=== PATIENT | female | born 2000 | race Caucasian/White ===

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

== ENCOUNTER 2020-11-26 11:05 | Emergency (ER) | payer OTHER ==
--- OUTSIDE RECORDS SUMMARY | 2020-11-26 11:52 | EXTERNAL MEDICAL SUMMARY RPT | Continuity of Care Document ---
:2000 Demographics Phone Unavailable Preferred Language Unknown Marital Status Unknown Mandaeism Affiliation Unknown Race Unknown Ethnic Group Unknown Author Organization [facility] Address [address] [id number] Phone Allergies Encounters Medications Problems Results
[2020-11-26 11:58] LABS: BILIRUBIN,URINE NEGATIVE (NEGATIVE); GLUCOSE, URINE (UA) NEGATIVE (NEGATIVE); KETONES,URINE (UA) 15 mg/dL (NEGATIVE); LEUKOCYTE ESTERASE, URINE NEGATIVE (NEGATIVE); NITRITE,URINE NEGATIVE (NEGATIVE); OCCULT BLOOD,URINE NEGATIVE (NEGATIVE); PH,URINE 6.5 PH (5.0-7.5); PROTEIN,URINE NEGATIVE (NEGATIVE); UROBILINOGEN,URINE 0.2 (NORMAL) E.U./dL (NORMAL)
[2020-11-26 11:58] LABS: BASOPHILS # (AUTO) 0.1 10^3/uL (0.0-0.1); BASOPHILS % (AUTO) 1.1 %; EOSINOPHILS # (AUTO) 0.1 10^3/uL (0.0-0.7); EOSINOPHILS % (AUTO) 1.6 %; HCT - HEMATOCRIT 42.3 % (37.0-47.0); HGB - HEMOGLOBIN 14.7 g/dL (12.0-16.0); LYMPHOCYTES # (AUTO) 2.3 10^3/uL (1.5-3.5); LYMPHOCYTES % (AUTO) 27.3 %; MEAN CORPUSCULAR HEMOGLOBIN 30.2 pg (27.0-31.0); MEAN CORPUSCULAR HGB CONC 34.8 g/dL (32.0-36.0); MEAN CORPUSCULAR VOLUME 86.9 fL (81.0-99.0); MEAN PLATELET VOLUME 10.3 fL (7.9-10.8); MONOCYTES # (AUTO) 0.8 10^3/uL (0.0-1.0); MONOCYTES % (AUTO) 9.1 %; NEUTROPHILS % (AUTO) 60.5 %; PLT - PLATELET COUNT 356 10^3/uL (130-450); RED BLOOD COUNT 4.87 10^6/uL (4.20-5.40); RED CELL DISTRIBUTION WIDTH 11.5 % (12.0-15.0); WHITE BLOOD COUNT 8.3 x10^3/uL (4.8-10.8)
[2020-11-26 12:01] LABS: CLARITY,URINE CLEAR (CLEAR); HCG UR QUAL NEGATIVE
[2020-11-26 12:10] LABS: ALBUMIN 5.2 g/dL (3.2-5.5); ALBUMIN/GLOBULIN RATIO 1.3 (1.0-2.2); CREATININE 0.8 mg/dL (0.4-1.0); POTASSIUM 4.4 mmol/L (3.5-5.0); TOTAL PROTEIN 9.1 g/dL (6.7-8.2)
--- NOTE | 2020-11-26 13:26 | ED Physician Documentation ---
PD HPI ABD PAIN - Stated complaint Stated Complaint: BLOOD IN STOOL - Chief complaint Chief Complaint: Abd Pain - History obtained from History obtained from: Patient - History of Present Illness Timing - onset: How many weeks ago (several weeks) Timing - duration: Weeks Timing - details: Abrupt onset Pain level max: 6 Pain level now: 5 Quality: Cramping, Aching, Pain Location: RLQ, Suprapubic, LLQ Radiation: No: Chest, , Lower back, Left flank, Left shoulder, Right flank, Right shoulder, Upper back Improved by: Other (nothing) Worsened by: Other (nothing) Associated symptoms: Diarrhea, Hematochezia. No: Fever, Nausea, Vomiting, Hematemesis - Additional information Additional information: Patient is a 20-year-old female who presents to the emergency department with lower abdominal pain and cramping, intermittently over the past year, but worse over the past 2 weeks. She reports bright red blood per rectum and bright red blood in the stool over the past 2 weeks as well. She states that she has ulcers that occasionally arise in her mouth. She has a brother with Crohn's disease. She is not currently on any medications. Has never had a colonoscopy or endoscopy. Nothing seems to make it better or worse. No fevers. No chills. Review of Systems Ten Systems: 10 systems reviewed and negative Constitutional: denies: Fever, Chills Nose: denies: Rhinorrhea / runny nose, Congestion Respiratory: denies: Cough GI: denies: Vomiting, Diarrhea Skin: denies: Rash Musculoskeletal: denies: Neck pain, Back pain Neurologic: denies: Headache PD PAST MEDICAL HISTORY - Past Medical History Past Medical History: Yes - Past Surgical History Past Surgical History: No - Present Medications Home Medications: Ambulatory Orders Medication Instructions Recorded Confirmed predniSONE [Deltasone] 10 mg PO [id number] #42 tab 11/26/20 - Allergies Allergies/Adverse Reactions: Allergies Allergy/AdvReac Type Severity Reaction Status Date / Time No Known Drug Allergies Allergy Verified 11/26/20 11:32 PD ED PE NORMAL - Vitals Vital signs reviewed: Yes - General General: Alert and oriented X 3, No acute distress - HEENT HEENT: Moist mucous membranes - Neck Neck: Supple, no meningeal sign - Cardiac Cardiac: RRR - Respiratory Respiratory: No respiratory distress, Clear bilaterally - Abdomen Abdomen: Soft, Non distended, Other (mild TTP lower abd, no peritoneal signs.) - Derm Derm: Warm and dry - Neuro Neuro: Alert and oriented X 3 - Psych Psych: Normal mood, Normal affect Results - Vitals Vitals: Vital Signs - 24 hr 11/26/20 11/26/20 11:32 14:26 Temperature 36.5 C 37.3 C Heart Rate 100 93 Respiratory 16 16 Rate Blood Pressure 139/96 H 128/83 H O2 Saturation 100 97 Oxygen O2 Source Room air - Labs Labs: Laboratory Tests 11/26/20 11/26/20 11/26/20 11:50 11:53 11:53 WBC 8.3 RBC 4.87 Hgb 14.7 Hct 42.3 MCV 86.9 MCH 30.2 MCHC 34.8 RDW 11.5 L Plt Count 356 MPV 10.3 Neut # (Auto) 5.0 Lymph # (Auto) 2.3 Bland # (Auto) 0.8 Eos # (Auto) 0.1 Baso # (Auto) 0.1 Absolute Nucleated RBC 0.00 Nucleated RBC % 0.0 ESR Sodium 137 Potassium 4.4 Chloride 102 Carbon Dioxide 26 Anion Gap 9.0 BUN 13 Creatinine 0.8 Estimated GFR (MDRD) 91 Glucose 106 H Calcium 10.0 Total Bilirubin 1.0 AST 23 ALT 19 Alkaline Phosphatase 69 Total Protein 9.1 H Albumin 5.2 Globulin 3.9 Albumin/Globulin Ratio 1.3 Lipase 23 Urine Color DARK YELLOW Urine Clarity CLEAR Urine pH 6.5 Ur Specific Gordon 1.020 Urine Protein NEGATIVE Urine Glucose (UA) NEGATIVE Urine Ketones 15 H Urine Occult Blood NEGATIVE Urine Nitrite NEGATIVE Urine Bilirubin NEGATIVE Urine Urobilinogen 0.2 (NORMAL) Ur Leukocyte Esterase NEGATIVE Ur Microscopic Review NOT INDICATED Urine Culture Comments NOT INDICATED Urine HCG, Qual NEGATIVE 11/26/20 11:53 WBC RBC Hgb Hct MCV MCH MCHC RDW Plt Count MPV Neut # (Auto) Lymph # (Auto) Bland # (Auto) Eos # (Auto) Baso # (Auto) Absolute Nucleated RBC Nucleated RBC % ESR 14 Sodium Potassium Chloride Carbon Dioxide Anion Gap BUN Creatinine Estimated GFR (MDRD) Glucose Calcium Total Bilirubin AST ALT Alkaline Phosphatase Total Protein Albumin Globulin Albumin/Globulin Ratio Lipase Urine Color Urine Clarity Urine pH Ur Specific Gordon Urine Protein Urine Glucose (UA) Urine Ketones Urine Occult Blood Urine Nitrite Urine Bilirubin Urine Urobilinogen Ur Leukocyte Esterase Ur Microscopic Review Urine Culture Comments Urine HCG, Qual - Rads (name of study) CT abd/pelvis Radiology: Prelim report reviewed, EMP read contemporaneously, See rad report (no acute abnormality) PD MEDICAL DECISION MAKING - ED course Complexity details: reviewed results, re-evaluated patient, considered differential, d/w patient ED course: 20-year-old female presents to the emergency department with symptoms that been ongoing for some time. It seems that her symptoms to be most consistent with an inflammatory bowel disease, likely Crohn's disease. We will trial her on a hanh roid taper and see if this helps her symptoms. She will follow up with gastroenterology as well for colonoscopy and endoscopy. Her brother has Crohn's disease as well. No significant anemia. No acute findings on CT. This document was made in part using voice recognition software. While efforts are made to proofread this document, sound alike and grammatical errors may occur. Departure - Departure Disposition: 01 Home, Self Care Clinical Impression: Hematochezia Abdominal pain Qualifiers: Abdominal location: unspecified location Qualified Code(s): R10.9 - Unspecified abdominal pain Condition: Good Instructions: ED Abdominal Pain Unkn Cause, ED Inflam Bowel Disease Crohn Follow-Up: [facility] [Provider Group] - Within 1 week Prescriptions: predniSONE [Deltasone] 10 mg PO [id number] #42 tab Comments: Follow-up with gastroenterology for further care. You should obtain a primary care provider as well. You will likely need a colonoscopy and/or endoscopy for further diagnosis and management. The steroid should help with your symptoms. Return if you worsen Discharge Date/Time: 11/26/20 15:17
[2020-11-26] MEDS ORDERED: IOVERSOL 320 100 ML VIAL IVP ONE ×2 (14:06→16:55)
--- NOTE | 2020-11-26 14:44 | CT Report ---
PROCEDURE: Abdomen/Pelvis W INDICATIONS: diffuse abd pain, hematochezia CONTRAST: IV CONTRAST: Optiray 320 ml: 100 PO CONTRAST: *NO PO CONTRAST TECHNIQUE: After the administration of 100 contrast, 5 mm thick sections acquired from the diaphragms to the sym physis. 5 mm thick coronal and sagittal reformats were acquired. For radiation dose reduction, the following was used: automated exposure control, adjustment of mA and/or kV according to patient size . COMPARISON: None. FINDINGS: Image quality: Excellent. ABDOMEN: Lung bases: Lung bases are clear. Heart size is normal. Solid organs: Liver and spleen are normal in size and enhancement. Gallbladder is normal Biliary s ystem is non dilated. Pancreas enhances normally. No adrenal nodules. Kidneys demonstrate normal s ize and enhancement, without hydronephrosis. Peritoneum and bowel: Bowel loops demonstrate normal wall thickness and caliber. No free fluid or a ir. Nodes and vessels: No retroperitoneal or mesenteric adenopathy by size criteria. Aorta and inferior vena cava are normal in size. Miscellaneous: No ventral hernias. PELVIS: Genitourinary: Bladder wall thickness is normal. Miscellaneous: No inguinal hernias or adenopathy. Bones: No suspicious bony lesions. No vertebral body compression fractures. IMPRESSION: 1. No acute abdominal or pelvic abnormality. 2. Normal appendix. 3. No CT findings to suggest Crohn's disease, however CT is not sensitive for this diagnosis. Reviewed by: Babar Scott on 11/26/2020 2:43 PM PDT Approved by: Babar Scott on 11/26/2020 2:43 PM PDT Station ID: [id number]
[2020-11-26 14:47] VITALS: BP 128/83
[2020-11-26] MEDS ORDERED: predniSONE 20 MG TABLET PO STA (14:57)
== END 2020-11-26 15:17 | disposition home or self-care (01) ==
LOC: ED 11:05
DX: K92.1 Melena (principal); R10.31 Right lower quadrant pain; R10.32 Left lower quadrant pain; Z83.79 Family history of other diseases of the digestive system
CPT/HCPCS: 36415; 74177; 80053; 81003; 81025; 83690; 85025; 85651; 99284; J7512; Q9967; 81001; 87086

== ENCOUNTER 2021-03-24 06:55 | Emergency (ER) | payer OTHER ==
[2021-03-24 07:17] LABS: GLUCOSE, URINE (UA) NEGATIVE (NEGATIVE); KETONES,URINE (UA) >=80 mg/dL (NEGATIVE); LEUKOCYTE ESTERASE, URINE NEGATIVE (NEGATIVE); NITRITE,URINE NEGATIVE (NEGATIVE); OCCULT BLOOD,URINE NEGATIVE (NEGATIVE); PROTEIN,URINE NEGATIVE (NEGATIVE); UROBILINOGEN,URINE 0.2 (NORMAL) E.U./dL (NORMAL)
[2021-03-24 07:20] LABS: BILIRUBIN,URINE NEGATIVE (NEGATIVE); CLARITY,URINE CLEAR (CLEAR); HCG UR QUAL NEGATIVE; ICTOTEST,URINE NEGATIVE
--- NOTE | 2021-03-24 07:36 | ED Physician Documentation ---
PD HPI ABD PAIN - Stated complaint Stated Complaint: STOMACH PX - Chief complaint Chief Complaint: Abd Pain - History obtained from History obtained from: Patient - Additional information Additional information: 21yo female with recent dx Crohn's disease. Intermittent sharp abd pain yuli 18 hours. 16 lb weight loss over the last few weeks. Diarrhea for months with mucous and blood. About 40 pound total weight loss since November. Was on Prednisone in November, not on anything for Crohn's disease now. PD PAST MEDICAL HISTORY - Past Medical History GI: Crohn's disease - Past Surgical History Past Surgical History: No - Present Medications Home Medications: Ambulatory Orders Medication Instructions Recorded Confirmed Dicyclomine [Bentyl] 1 - 2 tab PO QID PRN #60 cap 03/24/21 Mesalamine [Pentasa] 2 tab PO TID #360 tab 03/24/21 Ondansetron Odt [Zofran] 4 mg TL Q6H PRN #30 tablet 03/24/21 lamoTRIgine [LaMICtal] 25 mg PO DAILY 03/24/21 03/24/21 lamoTRIgine [LaMICtal] 100 mg PO DAILY 03/24/21 03/24/21 predniSONE [Deltasone] 4 tablet PO 0800 #70 tablet 03/24/21 - Allergies Allergies/Adverse Reactions: Allergies Allergy/AdvReac Type Severity Reaction Status Date / Time No Known Drug Allergies Allergy Verified 03/24/21 07:02 - Social History Does the pt smoke?: No Smoking Status: Never smoker PD ED PE NORMAL - Vitals Vital signs reviewed: Yes - General General: Alert and oriented X 3, No acute distress - Abdomen Abdomen: Normal bowel sounds, Soft, Non tender - Neuro Neuro: Alert and oriented X 3, Normal speech - Psych Psych: Normal mood, Normal affect Results - Vitals Vitals: Vital Signs - 24 hr 03/24/21 03/24/21 03/24/21 07:05 07:12 07:42 Temperature 37.2 C Heart Rate 130 H 118 H 90 Respiratory 18 22 17 Rate Blood Pressure 160/93 H 148/93 H 125/80 O2 Saturation 100 99 99 03/24/21 03/24/21 03/24/21 08:00 08:30 10:00 Temperature Heart Rate 94 100 88 Respiratory 16 16 14 Rate Blood Pressure 131/75 H 105/90 H 117/67 O2 Saturation 98 99 96 Oxygen O2 Source Room air - Labs Labs: Laboratory Tests 03/24/21 03/24/21 03/24/21 07:09 07:39 07:39 WBC 5.6 RBC 4.77 Hgb 14.2 Hct 42.0 MCV 88.1 MCH 29.8 MCHC 33.8 RDW 11.5 L Plt Count 285 MPV 10.6 Neut # (Auto) 3.4 Lymph # (Auto) 1.5 Baker # (Auto) 0.6 Eos # (Auto) 0.2 Baso # (Auto) 0.1 Absolute Nucleated RBC 0.00 Nucleated RBC % 0.0 Sodium 138 Potassium 4.0 Chloride 102 Carbon Dioxide 24 Anion Gap 12.0 BUN 12 Creatinine 0.9 Estimated GFR (MDRD) 79 L Glucose 90 Calcium 9.7 Total Bilirubin 1.8 H AST 20 ALT 15 Alkaline Phosphatase 55 Total Protein 7.9 Albumin 5.4 Globulin 2.5 Albumin/Globulin Ratio 2.2 Lipase 25 Urine Color DARK YELLOW Urine Clarity CLEAR Urine pH 6.0 Ur Specific Colony >=1.030 H Urine Protein NEGATIVE Urine Glucose (UA) NEGATIVE Urine Ketones >=80 H Urine Occult Blood NEGATIVE Urine Nitrite NEGATIVE Urine Bilirubin NEGATIVE Urine Urobilinogen 0.2 (NORMAL) Ur Leukocyte Esterase NEGATIVE Ur Microscopic Review NOT INDICATED Urine Culture Comments NOT INDICATED Urine HCG, Qual NEGATIVE PD MEDICAL DECISION MAKING - ED course ED course: 21-year-old woman with symptoms from Crohn's including orthostasis, abdominal cramps, nausea and vomiting and bloody mucousy stools. She is on no therapy right now. She is tachycardic with ketonuria consistent with dehydration. She was administered 2 L of LR, IV Zofran, and IV Solu-Medrol here. Feeling better after the above interventions and started on a steroid taper and other meds for symptomatic relief pending GI follow-up which is scheduled for early next month. Departure - Departure Disposition: 01 Home, Self Care Clinical Impression: Acute Crohn's disease Qualifiers: Digestive disease complication type: without complication Qualified Code(s): K50.90 - Crohn's disease, unspecified, without complications Condition: Good Record reviewed to determine appropriate education?: Yes Instructions: Disease Crohn Dc Prescriptions: Dicyclomine [Bentyl] 1 - 2 tab PO QID PRN #60 cap PRN Reason: Abdominal Pain predniSONE [Deltasone] 4 tablet PO 0800 #70 tablet Mesalamine [Pentasa] 2 tab PO TID #360 tab Ondansetron Odt [Zofran] 4 mg TL Q6H PRN #30 tablet PRN Reason: Nausea / Vomiting Comments: Prescriptions sent electronically to [facility] in [place]. Take the prescriptions with you when you follow-up with GI and you can discuss what is working and what is not. Return if worsening or if your symptoms are uncontrolled. Discharge Date/Time: 03/24/21 10:37
[2021-03-24] MEDS ORDERED: LACTATED RINGERS 2,000 ML IV STA (07:38)
[2021-03-24] MEDS ORDERED: ONDANSETRON 4 MG/2 ML VIAL IVP STA (07:39)
[2021-03-24] MEDS ORDERED: methylPREDNISolone SUCCINATE 125 MG/2 ML VIAL IVP STA (07:43)
[2021-03-24 07:50] LABS: BASOPHILS # (AUTO) 0.1 10^3/uL (0.0-0.1); BASOPHILS % (AUTO) 0.9 %; EOSINOPHILS # (AUTO) 0.2 10^3/uL (0.0-0.7); EOSINOPHILS % (AUTO) 2.9 %; HGB - HEMOGLOBIN 14.2 g/dL (12.0-16.0); LYMPHOCYTES # (AUTO) 1.5 10^3/uL (1.5-3.5); LYMPHOCYTES % (AUTO) 26.1 %; MEAN CORPUSCULAR HEMOGLOBIN 29.8 pg (27.0-31.0); MEAN CORPUSCULAR HGB CONC 33.8 g/dL (32.0-36.0); MEAN CORPUSCULAR VOLUME 88.1 fL (81.0-99.0); MEAN PLATELET VOLUME 10.6 fL (7.9-10.8); MONOCYTES # (AUTO) 0.6 10^3/uL (0.0-1.0); MONOCYTES % (AUTO) 10.2 %; NEUTROPHILS # (AUTO) 3.4 10^3/uL (1.5-6.6); NEUTROPHILS % (AUTO) 59.7 %; PLT - PLATELET COUNT 285 10^3/uL (130-450); RED BLOOD COUNT 4.77 10^6/uL (4.20-5.40); RED CELL DISTRIBUTION WIDTH 11.5 % (12.0-15.0); WHITE BLOOD COUNT 5.6 x10^3/uL (4.8-10.8)
[2021-03-24 07:59] LABS: ALBUMIN 5.4 g/dL (3.2-5.5); ALBUMIN/GLOBULIN RATIO 2.2 (1.0-2.2); BILIRUBIN,TOTAL 1.8 mg/dL (0.2-1.0); CALCIUM 9.7 mg/dL (8.5-10.3); CREATININE 0.9 mg/dL (0.4-1.0); TOTAL PROTEIN 7.9 g/dL (6.7-8.2)
[2021-03-24] MEDS ORDERED: DICYCLOMINE 10 MG CAPSULE PO STA (09:38)
[2021-03-24 10:19] VITALS: BP 117/67
== END 2021-03-24 10:37 | disposition home or self-care (01) ==
LOC: ED 06:55
DX: K50.90 Crohn's disease, unspecified, without complications (principal); E86.0 Dehydration
CPT/HCPCS: 36415; 80053; 81003; 81025; 83690; 85025; 96361; 96374; 96375; 99281; 99283; A9270; J7120; 81001; 87086

== ENCOUNTER 2021-06-02 00:35 | Emergency (ER) | payer OTHER ==
[2021-06-02 01:07] LABS: GLUCOSE, URINE (UA) NEGATIVE (NEGATIVE); KETONES,URINE (UA) >=80 mg/dL (NEGATIVE); LEUKOCYTE ESTERASE, URINE NEGATIVE (NEGATIVE); NITRITE,URINE NEGATIVE (NEGATIVE); OCCULT BLOOD,URINE LARGE (NEGATIVE); PH,URINE 5.5 PH (5.0-7.5); PROTEIN,URINE TRACE mg/dL (NEGATIVE); UROBILINOGEN,URINE 0.2 (NORMAL) E.U./dL (NORMAL)
[2021-06-02 01:13] LABS: BILIRUBIN,URINE NEGATIVE (NEGATIVE); CLARITY,URINE HAZY (CLEAR); ICTOTEST,URINE NEGATIVE
[2021-06-02 01:14] LABS: BACTERIA,URINE Few /HPF (None Seen); HCG UR QUAL NEGATIVE; RBC,URINE TNTC /HPF (0-5); SQUAMOUS EPITHELIAL CELL,UR MOD Squamous (<= Few)
--- NOTE | 2021-06-02 01:36 | ED Physician Documentation ---
PD HPI FEMALE - Stated complaint Stated Complaint: FEMALE - Chief complaint Chief Complaint: Abd Pain - History obtained from History obtained from: Patient - History of Present Illness Timing - onset: How many days ago (2-3) Timing - duration: Days Timing - details: Abrupt onset Pain level max: 3 (suprapubic cramping pain) Associated symptoms: Abdominal pain, Vaginal bleeding. No: Fever, Dysuria Contributing factors: No: Similar symptoms before: No diagnosis - Additional information Additional information: patients chief complaint is vaginal bleeding with clots x 2-3 days, associated with suprapubic cramping pain. She has many other c/o which are of a more [id number] nature; these include unintended weight loss, nausea and vomiting, various rashes that appear and fade, abdominal pain that is most pronounced LUQ for which she recently had upper endoscopy (last week) which patient says showed mild gastritis, episodic diaphoresis, rapid palpitations. Review of Systems Constitutional: reports: Fatigue, Sweats. denies: Fever Eyes: reports: Reviewed and negative Cardiac: reports: Palpitations. denies: Chest pain / pressure, Pedal edema Respiratory: reports: Reviewed and negative GI: reports: Abdominal Pain, Nausea, Vomiting. denies: Hematemesis, Bloody / black stool : denies: Dysuria, Frequency, Now EGA Skin: reports: Rash Neurologic: reports: Headache. 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: No Does the pt have substance abuse?: No - Immunizations Immunizations are current?: Yes - POLST Patient has POLST: No PD ED PE NORMAL - Vitals Vital signs reviewed: Yes - General General: Alert and oriented X 3, Well developed/nourished, Other (anxious, and tearful at times (she explains that her ongoing symptoms are wearing on her and she fears that there will never be a diagnosis for her symptoms)) - Cardiac Cardiac: No murmur - Respiratory Respiratory: No respiratory distress, Clear bilaterally - Abdomen Abdomen: Soft, Non distended, Other (mild suprapubic and left anterior hemipelvic tenderness without rebound or guarding) - Back Back: No CVA TTP - Derm Derm: Normal color, Warm and dry PD ED PE EXPANDED - Cardiac Cardiac: Tachy, Regular Rhythm Results - Vitals Vitals: Oxygen O2 Source Room air - Labs Labs: Laboratory Tests 06/02/21 06/02/21 06/02/21 00:50 00:50 02:07 WBC 10.7 RBC 4.65 Hgb 14.0 Hct 40.3 MCV 86.7 MCH 30.1 MCHC 34.7 RDW 11.6 L Plt Count 322 MPV 10.7 Neut # (Auto) 7.4 H Lymph # (Auto) 2.1 Aurora # (Auto) 1.0 Eos # (Auto) 0.1 Baso # (Auto) 0.1 Absolute Nucleated RBC 0.00 Nucleated RBC % 0.0 Sodium Potassium Chloride Carbon Dioxide Anion Gap BUN Creatinine Estimated GFR (MDRD) Glucose Calcium Total Bilirubin AST ALT Alkaline Phosphatase Total Protein Albumin Globulin Albumin/Globulin Ratio Lipase Urine Color YELLOW Urine Clarity HAZY Urine pH 5.5 Ur Specific Starr >=1.030 H Urine Protein TRACE Urine Glucose (UA) NEGATIVE Urine Ketones >=80 H Urine Occult Blood LARGE H Urine Nitrite NEGATIVE Urine Bilirubin NEGATIVE Urine Urobilinogen 0.2 (NORMAL) Ur Leukocyte Esterase NEGATIVE Urine RBC TNTC H Urine WBC 4-5 Ur Squamous Epith Cells MOD Squamous H Urine Bacteria Few Ur Microscopic Review INDICATED Urine Culture Comments NOT INDICATED Urine HCG, Qual NEGATIVE 06/02/21 02:07 WBC RBC Hgb Hct MCV MCH MCHC RDW Plt Count MPV Neut # (Auto) Lymph # (Auto) Aurora # (Auto) Eos # (Auto) Baso # (Auto) Absolute Nucleated RBC Nucleated RBC % Sodium 137 Potassium 3.8 Chloride 100 L Carbon Dioxide 22 Anion Gap 15.0 H BUN 14 Creatinine 0.9 Estimated GFR (MDRD) 79 L Glucose 80 Calcium 9.8 Total Bilirubin 1.7 H AST 16 ALT 13 Alkaline Phosphatase 61 Total Protein 8.1 Albumin 4.9 Globulin 3.2 Albumin/Globulin Ratio 1.5 Lipase 22 Urine Color Urine Clarity Urine pH Ur Specific Starr Urine Protein Urine Glucose (UA) Urine Ketones Urine Occult Blood Urine Nitrite Urine Bilirubin Urine Urobilinogen Ur Leukocyte Esterase Urine RBC Urine WBC Ur Squamous Epith Cells Urine Bacteria Ur Microscopic Review Urine Culture Comments Urine HCG, Qual - Rads (name of study) pelvic US Radiology: Prelim report reviewed, See rad report PD MEDICAL DECISION MAKING - ED course Complexity details: reviewed results, re-evaluated patient, considered diffe rential, d/w patient ED course: pelvic/TV US demonstrates possible endometrial implant in left adnexa. Patient was already aware that endometriosis could be one of her (eventually) diagnoses and this finding , while not confirmatory, is compelling. There are no emergent processes indicated nor suggested by tonights testing and thus patient is instructed to follow up with primary care provider, return if worse. Departure - Departure Disposition: 01 Home, Self Care Clinical Impression: Vaginal bleeding Condition: Good Instructions: ED Bleed Irregular Vaginal Follow-Up: Agustina Dent ARNP [Primary Care Provider] - Comments: As we discussed, the cause of your vaginal bleeding is not apparent based on today's tests. However, there is a finding on the ultrasound which could be consistent with endometriosis. This diagnosis would require further evaluation by an manufacturing controls engineer. Discharge Date/Time: 06/02/21 06:40
[2021-06-02 02:23] LABS: BASOPHILS # (AUTO) 0.1 10^3/uL (0.0-0.1); BASOPHILS % (AUTO) 0.8 %; EOSINOPHILS # (AUTO) 0.1 10^3/uL (0.0-0.7); EOSINOPHILS % (AUTO) 1.1 %; HCT - HEMATOCRIT 40.3 % (37.0-47.0); LYMPHOCYTES # (AUTO) 2.1 10^3/uL (1.5-3.5); LYMPHOCYTES % (AUTO) 19.5 %; MEAN CORPUSCULAR HEMOGLOBIN 30.1 pg (27.0-31.0); MEAN CORPUSCULAR HGB CONC 34.7 g/dL (32.0-36.0); MEAN CORPUSCULAR VOLUME 86.7 fL (81.0-99.0); MEAN PLATELET VOLUME 10.7 fL (7.9-10.8); MONOCYTES % (AUTO) 9.1 %; NEUTROPHILS # (AUTO) 7.4 10^3/uL (1.5-6.6); NEUTROPHILS % (AUTO) 69.2 %; PLT - PLATELET COUNT 322 10^3/uL (130-450); RED BLOOD COUNT 4.65 10^6/uL (4.20-5.40); RED CELL DISTRIBUTION WIDTH 11.6 % (12.0-15.0); WHITE BLOOD COUNT 10.7 x10^3/uL (4.8-10.8)
[2021-06-02 02:35] LABS: ALBUMIN 4.9 g/dL (3.2-5.5); ALBUMIN/GLOBULIN RATIO 1.5 (1.0-2.2); BILIRUBIN,TOTAL 1.7 mg/dL (0.2-1.0); CALCIUM 9.8 mg/dL (8.5-10.3); CREATININE 0.9 mg/dL (0.4-1.0); POTASSIUM 3.8 mmol/L (3.5-5.0); TOTAL PROTEIN 8.1 g/dL (6.7-8.2)
[2021-06-02] MEDS ORDERED: SODIUM CHLORIDE 0.9% 1,000 ML IV STA (05:24)
[2021-06-02 05:49] VITALS: BP 132/82
--- NOTE | 2021-06-02 08:27 | Ultrasound Report ---
PROCEDURE: Pelvic Complete INDICATIONS: Vaginal bleeding, cramping TECHNIQUE: Real-time transabdominal scanning was performed of the pelvic organs, with image documentation. COMPARISON: CT abdomen and pelvis dated 11/26/2020 FINDINGS: Uterus: Uterus is normal in size at 9.4 x 6.2 x 4.0 cm. Endometrium measures 7.4 mm in combined thi ckness. Uterus is anteverted. Uterine volume is 121.9 mL. Ovaries: Right ovary measures 3.5 x 2.3 x 2.1 cm with a volume of 8.8 mL. Left ovary measures 2.9 x 2.4 x 2.2 cm with a volume of 8.0 mL. There is bilateral intraovarian flow. There is a hypoechoic focus medial to the left ovary measuring 3.1 x 1.0 x 1.1 cm with flow within it . Other: No free pelvic fluid. IMPRESSION: 1. Normal-appearing uterus. 2. No evidence of ovarian torsion. Normal ovaries. 3. Hypoechoic focus with internal vascularity adjacent to the left adnexa. Consider possible endometr ial implant. Findings are concordant with preliminary interpretation provided by [facility]. Reviewed by: Carl Somers MD on 06/02/2021 8:26 AM PST Approved by: Carl Somers MD on 06/02/2021 8:26 AM PST Station ID: [id number]
--- NOTE | 2021-06-02 08:28 | Ultrasound Report ---
PROCEDURE: Pelvic Complete INDICATIONS: Vaginal bleeding, cramping TECHNIQUE: Real-time transvaginal scanning was performed of the pelvic organs, with image documentation. COMPARISON: CT abdomen and pelvis dated 11/26/2020 FINDINGS: Uterus: Uterus is normal in size at 9.4 x 6.2 x 4.0 cm. Endometrium measures 7.4 mm in combined thi ckness. Uterus is anteverted. Uterine volume is 121.9 mL. Ovaries: Right ovary measures 3.5 x 2.3 x 2.1 cm with a volume of 8.8 mL. Left ovary measures 2.9 x 2.4 x 2.2 cm with a volume of 8.0 mL. There is bilateral intraovarian flow. There is a hypoechoic focus medial to the left ovary measuring 3.1 x 1.0 x 1.1 cm with flow within it . Other: No free pelvic fluid. IMPRESSION: 1. Normal-appearing uterus. 2. No evidence of ovarian torsion. Normal ovaries. 3. Hypoechoic focus with internal vascularity adjacent to the left adnexa. Consider possible endometr ial implant. Findings are concordant with preliminary interpretation provided by [facility]. Reviewed by: Carl Somers MD on 06/02/2021 8:27 AM PST Approved by: Carl Somers MD on 06/02/2021 8:27 AM PST Station ID: [id number]
== END 2021-06-02 06:40 | disposition home or self-care (01) ==
LOC: ED 00:35
DX: N93.9 Abnormal uterine and vaginal bleeding, unspecified (principal)
CPT/HCPCS: 36415; 80053; 81001; 81003; 81025; 83690; 85025; 87086; 99284

== ENCOUNTER 2021-08-11 18:32 | Emergency (ER) | payer OTHER ==
[2021-08-11 19:17] LABS: MUDS CUTOFF CONCENTRATIONS CUTOFF CONC BELOW:
[2021-08-11] MEDS ORDERED: LORazepam 2 MG/ML VIAL IVP STA (19:17)
[2021-08-11] MEDS ORDERED: SODIUM CHLORIDE 0.9% 1,000 ML IV STA (19:17)
--- NOTE | 2021-08-11 19:18 | ED Physician Documentation ---
History of Present Illness - Stated complaint Stated Complaint: BODY NUMBNESS,UNABLE TO THINK - Chief complaint Chief Complaint: Neuro - History obtained from History obtained from: Patient - History of Present Illness Timing: Today Pain level max: 0 Pain level now: 0 - Additonal information Additional information: 21-year-old female presents to the emergency department stating she had numbness near her left ankle earlier today. The numbness was then in her left thigh. Later she noticed that she had numbness in her left shoulder and upper arm. Currently she is complaining of numbness and tingling to the left arm. She states she went into the walk-in clinic and was told to come here if she worsens. Nothing seems to make it better or worse. She states that she has been worked up for multiple medical maladies. 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 No chest pain. No back pain. No shortness of breath. No focal weakness. No difficulty with speech. 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 : None HEENT: None Psych: Other Musculoskeletal: None Derm: None - Past Surgical History Past Surgical History: No - Present Medications Home Medications: Ambulatory Orders Medication Instructions Recorded Confirmed lamoTRIgine [LaMICtal] 25 mg PO DAILY 03/24/21 06/02/21 lamoTRIgine [LaMICtal] 100 mg PO DAILY 03/24/21 06/02/21 - Allergies Allergies/Adverse Reactions: Allergies Allergy/AdvReac Type Severity Reaction Status Date / Time No Known Drug Allergies Allergy Verified 08/11/21 18:43 - Social History Does the pt smoke?: No Smoking Status: Never smoker Does the pt drink ETOH?: No Does the pt have substance abuse?: No - Immunizations Immunizations are current?: Yes - POLST Patient has POLST: No PD ED PE NORMAL - Vitals Vital signs reviewed: Yes - General General: Alert and oriented X 3, No acute distress - HEENT HEENT: PERRL - Neck Neck: Supple, no meningeal sign - Cardiac Cardiac: RRR, Strong equal pulses - Respiratory Respiratory: No respiratory distress, Clear bilaterally - Abdomen Abdomen: Soft, Non tender, Non distended - Derm Derm: Warm and dry - Extremities Extremities: No edema, No calf tenderness / cord - Neuro Neuro: Alert and oriented X 3, housekeeping cleaner 2-12 intact, No motor deficit, Other (Mild decrease sensation over the lateral aspect of the left leg and the left upper arm. No motor deficit.) Eye Opening: Spontaneous Motor: Obeys Commands Verbal: Oriented GCS Score: 15 - Psych Psych: Normal mood, Normal affect Results - Vitals Vitals: Vital Signs - 24 hr 08/11/21 08/11/21 08/11/21 18:38 19:31 21:21 Temperature 36.2 C L 37.2 C Heart Rate 124 H 100 100 Respiratory 16 20 20 Rate Blood Pressure 152/104 H 135/91 H O2 Saturation 99 98 100 Oxygen O2 Source Room air - EKG (time done) 1901 Rate: Rate (enter#) (106) Rhythm: Sinus tachycardia [place]: Normal Intervals: Normal [place] QRS: Normal Ischemia: Normal ST segments - Labs Labs: Laboratory Tests 08/11/21 08/11/21 08/11/21 19:06 19:13 19:13 WBC 8.2 RBC 4.08 L Hgb 12.4 Hct 36.3 L MCV 89.0 MCH 30.4 MCHC 34.2 RDW 11.6 L Plt Count 256 MPV 10.0 Neut # (Auto) 5.1 Lymph # (Auto) 2.2 [place] # (Auto) 0.7 Eos # (Auto) 0.1 Baso # (Auto) 0.1 Absolute Nucleated RBC 0.00 Nucleated RBC % 0.0 Sodium 135 Potassium 3.6 Chloride 102 Carbon Dioxide 25 Anion Gap 8.0 BUN 9 Creatinine 0.7 Estimated GFR (MDRD) 106 Glucose 98 Calcium 9.0 Phosphorus Magnesium Total Bilirubin 0.6 AST 14 ALT 13 Alkaline Phosphatase 50 Total Protein 7.4 Albumin 4.7 Globulin 2.7 Albumin/Globulin Ratio 1.7 Lipase 33 TSH Urine Color STRAW Urine Clarity CLEAR Urine pH 6.0 Ur Specific [place] <=1.005 Urine Protein NEGATIVE Urine Glucose (UA) NEGATIVE Urine Ketones NEGATIVE Urine Occult Blood NEGATIVE Urine Nitrite NEGATIVE Urine Bilirubin NEGATIVE Urine Urobilinogen 0.2 (NORMAL) Ur Leukocyte Esterase NEGATIVE Ur Microscopic Review NOT INDICATED Urine Culture Comments NOT INDICATED Urine HCG, Qual NEGATIVE Salicylates < 6.0 Urine Opiates Screen NEGATIVE Ur Oxycodone Screen NEGATIVE Urine Methadone Screen NEGATIVE Ur Propoxyphene Screen NEGATIVE Acetaminophen < 10 L Ur Barbiturates Screen NEGATIVE Ur Tricyclics Screen NEGATIVE Ur Phencyclidine Scrn NEGATIVE Ur Amphetamine Screen NEGATIVE U Methamphetamines Scrn NEGATIVE U Benzodiazepines Scrn NEGATIVE Urine Cocaine Screen NEGATIVE U Cannabinoids Screen POSITIVE H Ethyl Alcohol < 5.0 08/11/21 08/11/21 19:13 19:13 WBC RBC Hgb Hct MCV MCH MCHC RDW Plt Count MPV Neut # (Auto) Lymph # (Auto) [place] # (Auto) Eos # (Auto) Baso # (Auto) Absolute Nucleated RBC Nucleated RBC % Sodium Potassium Chloride Carbon Dioxide Anion Gap BUN Creatinine Estimated GFR (MDRD) Glucose Calcium Phosphorus 4.1 Magnesium 2.0 Total Bilirubin AST ALT Alkaline Phosphatase Total Protein Albumin Globulin Albumin/Globulin Ratio Lipase TSH 0.66 Urine Color Urine Clarity Urine pH Ur Specific [place] Urine Protein Urine Glucose (UA) Urine Ketones Urine Occult Blood Urine Nitrite Urine Bilirubin Urine Urobilinogen Ur Leukocyte Esterase Ur Microscopic Review Urine Culture Comments Urine HCG, Qual Salicylates Urine Opiates Screen Ur Oxycodone Screen Urine Methadone Screen Ur Propoxyphene Screen Acetaminophen Ur Barbiturates Screen Ur Tricyclics Screen Ur Phencyclidine Scrn Ur Amphetamine Screen U Methamphetamines Scrn U Benzodiazepines Scrn Urine Cocaine Screen U Cannabinoids Screen Ethyl Alcohol - Rads (name of study) Head CT Radiology: Final report received, EMP read contemporaneously, See rad report PD MEDICAL DECISION MAKING - ED course Complexity details: reviewed results, re-evaluated patient, considered differential, d/w patient ED course: Head CT does not show any acute abnormalities. No significant lab abnormalities. Symptoms improved with IV fluids and Ativan. Unclear etiology. She states that she has multiple medical issues currently being evaluated. Multiple sclerosis would be on the differential for this patient. Recommend a brain MRI with her doctor. Patient counseled regarding signs and symptoms for which I believe and urgent re-evaluation would be necessary. Patient with good understanding of and agreement to plan and is comfortable going home at this time This document was made in part using voice recognition software. While efforts are made to proofread this document, sound alike and grammatical errors may occur. Departure - Departure Disposition: 01 Home, Self Care Clinical Impression: Paresthesia Condition: Good Instructions: ED Paraesthesias Follow-Up: your,doctor in 1 week [Other] Comments: Your laboratory testing and head CT did not show any acute abnormalities today. Please follow-up with your doctor for further care. It is recommended that you have a brain MRI to check for possible multiple sclerosis. Return if you worsen. Discharge Date/Time: 08/11/21 21:24 NIHSS - Time Time: 18:50 - Level of Consciousness Level of consciousness: (0) Alert, Keenly responsive LOC Questions: (0) Answers both Q's correct LOC Commands: (0) Performs both correctly - Gaze Best Gaze: (0) Normal - Visual Visual: (0) No loss - Facial Palsy Facial Palsy: (0) Normal, symmetrical movement - Motor Arms (both separate) Motor Arm (right): (0) No drift Motor Arm (left): (0) No drift - Motor Legs (both separate) Motor Leg (right): (0) No drift Motor Leg (left): (0) No drift - Limb Ataxia Limb Ataxia: (0) Absent - Sensory Sensory: (1) Iwio-bh-evyyakfy loss - Best Language Best Language: (0) No aphasia - Dysarthria Dysarthria: (0) Normal - Extinction and Inattention (formally neg Extinction and inattention: (0) No abnormality - Total Score/Results Total Score/Result: 1
[2021-08-11 19:19] LABS: BASOPHILS # (AUTO) 0.1 10^3/uL (0.0-0.1); BASOPHILS % (AUTO) 0.9 %; EOSINOPHILS # (AUTO) 0.1 10^3/uL (0.0-0.7); EOSINOPHILS % (AUTO) 1.5 %; HCT - HEMATOCRIT 36.3 % (37.0-47.0); HGB - HEMOGLOBIN 12.4 g/dL (12.0-16.0); LYMPHOCYTES # (AUTO) 2.2 10^3/uL (1.5-3.5); LYMPHOCYTES % (AUTO) 26.4 %; MEAN CORPUSCULAR HEMOGLOBIN 30.4 pg (27.0-31.0); MEAN CORPUSCULAR HGB CONC 34.2 g/dL (32.0-36.0); MONOCYTES # (AUTO) 0.7 10^3/uL (0.0-1.0); MONOCYTES % (AUTO) 8.7 %; NEUTROPHILS # (AUTO) 5.1 10^3/uL (1.5-6.6); NEUTROPHILS % (AUTO) 62.3 %; PLT - PLATELET COUNT 256 10^3/uL (130-450); RED BLOOD COUNT 4.08 10^6/uL (4.20-5.40); RED CELL DISTRIBUTION WIDTH 11.6 % (12.0-15.0); WHITE BLOOD COUNT 8.2 x10^3/uL (4.8-10.8)
[2021-08-11 19:21] LABS: BILIRUBIN,URINE NEGATIVE (NEGATIVE); GLUCOSE, URINE (UA) NEGATIVE (NEGATIVE); KETONES,URINE (UA) NEGATIVE (NEGATIVE); LEUKOCYTE ESTERASE, URINE NEGATIVE (NEGATIVE); NITRITE,URINE NEGATIVE (NEGATIVE); OCCULT BLOOD,URINE NEGATIVE (NEGATIVE); PROTEIN,URINE NEGATIVE (NEGATIVE); UROBILINOGEN,URINE 0.2 (NORMAL) E.U./dL (NORMAL)
[2021-08-11 19:22] LABS: CLARITY,URINE CLEAR (CLEAR); HCG UR QUAL NEGATIVE
[2021-08-11 19:30] LABS: AMPHETAMINE SCREEN,URINE NEGATIVE (NEGATIVE); BENZODIAZEPINES SCREEN, URINE NEGATIVE (NEGATIVE); COCAINE SCREEN URINE NEGATIVE (NEGATIVE); METHADONE SCREEN, URINE NEGATIVE (NEGATIVE); METHAMPHETAMINES SCREEN, URINE NEGATIVE (NEGATIVE); OPIATE SCREEN, URINE NEGATIVE (NEGATIVE); THC CANNABINOID SCREEN, URINE POSITIVE (NEGATIVE); TRICYCLIC ANTIDEPRESSANT,URINE NEGATIVE (NEGATIVE)
[2021-08-11 19:31] LABS: BARBITURATE SCREEN,UR NEGATIVE (NEGATIVE); OXYCODONE SCREEN, URINE NEGATIVE (NEGATIVE); PROPOXYPHENE SCREEN, URINE NEGATIVE (NEGATIVE)
[2021-08-11 19:39] LABS: ACETAMINOPHEN < 10 ug/mL (10-30); ALBUMIN 4.7 g/dL (3.2-5.5); ALBUMIN/GLOBULIN RATIO 1.7 (1.0-2.2); ALKALINE PHOSPHATASE 50 IU/L (42-121); ALT ALANINE AMINOTRANSFERASE 13 IU/L (10-60); AST ASPARTATE AMINOTRANSFERASE 14 IU/L (10-42); BILIRUBIN,TOTAL 0.6 mg/dL (0.2-1.0); BUN - BLOOD UREA NITROGEN 9 mg/dL (6-20); CARBON DIOXIDE - CO2 25 mmol/L (21-32); CHLORIDE 102 mmol/L (101-111); CREATININE 0.7 mg/dL (0.4-1.0); ETOH - ETHANOL < 5.0 mg/dL; GFR - MDRD 106 (>89); GLUCOSE 98 mg/dL (70-100); LIPASE 33 U/L (22-51); POTASSIUM 3.6 mmol/L (3.5-5.0); SALICYLATE < 6.0 mg/dL; SODIUM 135 mmol/L (135-145); TOTAL PROTEIN 7.4 g/dL (6.7-8.2)
[2021-08-11 19:49] LABS: PHOSPHORUS 4.1 mg/dL (2.5-4.6)
--- NOTE | 2021-08-11 21:00 | CT Report ---
PROCEDURE: HEAD WO INDICATIONS: L leg/arm numbness TECHNIQUE: Noncontrast 4.5 mm thick angled axial sections acquired from the foramen magnum to the vertex. For r adiation dose reduction, the following was used: automated exposure control, adjustment of mA and/or kV according to patient size. COMPARISON: None. FINDINGS: Image quality: Excellent. CSF spaces: Basal cisterns are patent. No extra-axial fluid collections. Ventricles are normal in size and shape. Brain: No midline shift. No intracranial masses or hemorrhage. Duffy-white matter interface is norm al. Skull and face: Calvarium and visualized facial bones are intact, without suspicious lesions. Sinuses: Visualized sinuses and mastoids are clear. IMPRESSION: Unremarkable study. Normal brain parenchyma. Reviewed by: Carl Somers MD on 08/11/2021 8:59 PM PST Approved by: Carl Somers MD on 08/11/2021 8:59 PM PST Station ID: [id number]
[2021-08-11 21:24] VITALS: BP 135/91
== END 2021-08-11 21:24 | disposition home or self-care (01) ==
LOC: ED 18:32
DX: R20.2 Paresthesia of skin (principal)
CPT/HCPCS: 36415; 70450; 80053; 80306; 80307; 80320; 80329; 81003; 81025; 83690; 83735; 84100; 84443; 85025; 93005; 96374; 99284; J2060; 81001; 87086

== ENCOUNTER 2021-08-14 11:41 | Outpatient (CLI) | payer OTHER | END 2021-08-14 11:42 | disposition critical access hospital (66) | LOC: EMS 11:41 | DX: R07.89 Other chest pain (principal); M25.512 Pain in left shoulder; F41.9 Anxiety disorder, unspecified; R45.89 Other symptoms and signs involving emotional state | CPT/HCPCS: A0425; A0429 ==

== ENCOUNTER 2021-08-14 12:04 | Emergency (ER) | payer OTHER ==
[2021-08-14 12:14] VITALS: BP 143/84
--- NOTE | 2021-08-14 12:25 | ED Physician Documentation ---
PD HPI CHEST PAIN - Stated complaint Stated Complaint: RAPID HR - Chief complaint Chief Complaint: Cardiac - History obtained from History obtained from: Patient - Additional information Additional information: 21-year-old woman being worked up for unclear based diagnosis. Possibilities include MS, Remy-Danlos, and POTS, but with no clear diagnosis at this point has been undergoing up an op Aleve pocae [facility] for the last several months. She was seen here a couple of days ago with left-sided numbness with negative work-up but was recommended to have an MRI of her brain which her doctor is working on. The remainder of her work-up was negative except for UDS positive for marijuana which she fully admits to. She had normal thyroid testing, basically normal CBC, electrolyte, liver function. Today presents with pleuritic left upper chest pain like a squeezing and pulling sensation that started on awakening this morning. It is worse with palpation and deep breathing. She is short of breath with it. She has no history of heart or lung disease. No family history of heart or lung disease. She is not on control, denies recent travel and no pedal edema or calf pain, no hemoptysis. Review of Systems Ten Systems: 10 systems reviewed and negative Constitutional: denies: Fever, Chills Ears: reports: Reviewed and negative Throat: reports: Reviewed and negative Cardiac: reports: Chest pain / pressure. denies: Palpitations Respiratory: reports: Dyspnea. 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 HEENT: None Psych: Other Musculoskeletal: None Derm: None - Past Surgical History Past Surgical History: No - Present Medications Home Medications: Ambulatory Orders Medication Instructions Recorded Confirmed lamoTRIgine [LaMICtal] 25 mg PO DAILY 03/24/21 06/02/21 lamoTRIgine [LaMICtal] 100 mg PO DAILY 03/24/21 06/02/21 - Allergies Allergies/Adverse Reactions: Allergies Allergy/AdvReac Type Severity Reaction Status Date / Time No Known Drug Allergies Allergy Verified 08/11/21 18:43 - Social History Does the pt smoke?: No Smoking Status: Never smoker Does the pt drink ETOH?: No Does the pt have substance abuse?: No - Immunizations Immunizations are current?: Yes - POLST Patient has POLST: No PD ED PE NORMAL - Vitals Vital signs reviewed: Yes - General General: Alert and oriented X 3, Other (She is tearful with an erratic heart rate that seems to be corresponding to how anxious she is and how much she is crying at any one moments. Her heart rate varies from the 90s to 130, sinus on the monitor.) - HEENT HEENT: PERRL, EOMI - Neck Neck: Supple, no meningeal sign, No bony TTP - Cardiac Cardiac: RRR, No murmur, Other (Pain is worse with palpation of the left upper chest wall reproducing her pain) - Respiratory Respiratory: No respiratory distress, Clear bilaterally - Abdomen Abdomen: Soft, Non tender - Back Back: No CVA TTP, No spinal TTP - Derm Derm: Normal color, Warm and dry - Extremities Extremities: No edema, No calf tenderness / cord - Neuro Neuro: Alert and oriented X 3, Normal speech - Psych Psych: Other (anxious) Results - Vitals Vitals: Vital Signs - 24 hr 08/14/21 12:06 Temperature 37.7 C Heart Rate 106 H Respiratory 18 Rate Blood Pressure 143/84 H O2 Saturation 100 Oxygen O2 Source Room air - EKG (time done) 1204 Rate: Rate (enter#) (102) Rhythm: Sinus tachycardia, LAE [place]: Normal Intervals: Normal [place] QRS: LVH Ischemia: Normal ST segments - Labs Labs: Laboratory Tests 08/14/21 08/14/21 08/14/21 12:37 12:37 12:37 WBC 5.5 RBC 4.25 Hgb 12.9 Hct 37.3 MCV 87.8 MCH 30.4 MCHC 34.6 RDW 11.4 L Plt Count 288 MPV 10.0 Neut # (Auto) 3.5 Lymph # (Auto) 1.4 L [place] # (Auto) 0.5 Eos # (Auto) 0.1 Baso # (Auto) 0.1 Absolute Nucleated RBC 0.00 Nucleated RBC % 0.0 D-Dimer VBG pH 7.361 VBG pCO2 49.9 VBG pO2 22.2 L VBG HCO3 27.6 VBG Total CO2 29.2 H VBG O2 Saturation 43.4 L VBG Base Excess 1.4 Sodium 140 Potassium 4.2 Chloride 104 Carbon Dioxide 26 Anion Gap 10.0 BUN 8 Creatinine 0.7 Estimated GFR (MDRD) 106 Glucose 107 H Calcium 9.7 Total Bilirubin 1.1 H AST 15 ALT 12 Alkaline Phosphatase 47 Total Protein 8.1 Albumin 5.1 Globulin 3.0 Albumin/Globulin Ratio 1.7 08/14/21 12:37 WBC RBC Hgb Hct MCV MCH MCHC RDW Plt Count MPV Neut # (Auto) Lymph # (Auto) [place] # (Auto) Eos # (Auto) Baso # (Auto) Absolute Nucleated RBC Nucleated RBC % D-Dimer < 200.0 L VBG pH VBG pCO2 VBG pO2 VBG HCO3 VBG Total CO2 VBG O2 Saturation VBG Base Excess Sodium Potassium Chloride Carbon Dioxide Anion Gap BUN Creatinine Estimated GFR (MDRD) Glucose Calcium Total Bilirubin AST ALT Alkaline Phosphatase Total Protein Albumin Globulin Albumin/Globulin Ratio - Rads (name of study) 1v chest Radiology: EMP read contemporaneously (NAD) PD MEDICAL DECISION MAKING - ED course ED course: 21-year-old woman undergoing work-up for unknown illness presents with new pleuritic chest pain. She is tachycardic although her affect would suggest that that may be related to anxiety. Regardless a work-up was done including D- dimer which was negative. She declined medications or other therapeutic interventions at this time. Departure - Departure Disposition: 01 Home, Self Care Clinical Impression: Pleuritic chest pain Condition: Good Record reviewed to determine appropriate education?: Yes Instructions: ED Chest Pain NonCardiac Comments: You were seen today for chest pain that sounds muscular based on the fact that we can reproduce it with palpation of the chest. I did have a worry about blood clots but the screening test for this was negative. Follow-up with your primary care physician as you are already doing for further evaluation and treatment for your other ongoing symptoms. Return for new or worsening symptoms. Discharge Date/Time: 08/14/21 13:26
[2021-08-14 12:43] LABS: BASOPHILS # (AUTO) 0.1 10^3/uL (0.0-0.1); BASOPHILS % (AUTO) 1.3 %; EOSINOPHILS # (AUTO) 0.1 10^3/uL (0.0-0.7); EOSINOPHILS % (AUTO) 1.3 %; HCT - HEMATOCRIT 37.3 % (37.0-47.0); HGB - HEMOGLOBIN 12.9 g/dL (12.0-16.0); LYMPHOCYTES # (AUTO) 1.4 10^3/uL (1.5-3.5); MEAN CORPUSCULAR HEMOGLOBIN 30.4 pg (27.0-31.0); MEAN CORPUSCULAR HGB CONC 34.6 g/dL (32.0-36.0); MEAN CORPUSCULAR VOLUME 87.8 fL (81.0-99.0); MONOCYTES # (AUTO) 0.5 10^3/uL (0.0-1.0); MONOCYTES % (AUTO) 8.4 %; NEUTROPHILS # (AUTO) 3.5 10^3/uL (1.5-6.6); PLT - PLATELET COUNT 288 10^3/uL (130-450); RED BLOOD COUNT 4.25 10^6/uL (4.20-5.40); RED CELL DISTRIBUTION WIDTH 11.4 % (12.0-15.0); WHITE BLOOD COUNT 5.5 x10^3/uL (4.8-10.8)
[2021-08-14 12:50] LABS: VBG BASE EXCESS 1.4 mmol/L (-2 - +2); VBG HCO3 27.6 mmol/L (23-28); VBG OXYGEN SATURATION 43.4 % (60-80); VBG PCO2 49.9 mmHg (41-51); VBG PH 7.361 (7.31-7.41); VBG PO2 22.2 mmHg (25-47); VBG TOTAL CO2 29.2 mmol/L (24-29)
[2021-08-14 13:00] LABS: ALBUMIN 5.1 g/dL (3.2-5.5); ALBUMIN/GLOBULIN RATIO 1.7 (1.0-2.2); BILIRUBIN,TOTAL 1.1 mg/dL (0.2-1.0); CALCIUM 9.7 mg/dL (8.5-10.3); CREATININE 0.7 mg/dL (0.4-1.0); POTASSIUM 4.2 mmol/L (3.5-5.0); TOTAL PROTEIN 8.1 g/dL (6.7-8.2)
--- NOTE | 2021-08-14 13:15 | XRAY Report ---
PROCEDURE: Chest 1 View X-Ray INDICATIONS: chest pain TECHNIQUE: One view of the chest was acquired. COMPARISON: None FINDINGS: Surgical changes and devices: None. Lungs and pleura: No pleural effusions or pneumothorax. Lungs are clear. Mediastinum: Mediastinal contours appear normal. Heart size is normal. Bones and chest wall: No suspicious bony lesions. Overlying soft tissues appear unremarkable. IMPRESSION: No acute pulmonary process. Reviewed by: Luci Claier MD on 08/14/2021 1:13 PM [facility] Approved by: Luci Claire MD on 08/14/2021 1:13 PM [facility] Station ID: [id number]
== END 2021-08-14 13:26 | disposition home or self-care (01) ==
LOC: EDUNIT# → ED 12:04
DX: R09.1 Pleurisy (principal)
CPT/HCPCS: 36415; 80053; 82803; 85025; 85379; 93005; 99284

== ENCOUNTER 2023-08-17 10:46 | Emergency (ER) | payer OTHER ==
[2023-08-17 11:05] VITALS: O2SAT 100
[2023-08-17 11:27] LABS: BASOPHILS # (AUTO) 0.1 10^3/uL (0.0-0.1); BASOPHILS % (AUTO) 1.1 %; EOSINOPHILS # (AUTO) 0.1 10^3/uL (0.0-0.7); EOSINOPHILS % (AUTO) 1.8 %; HCT - HEMATOCRIT 39.2 % (37.0-47.0); HGB - HEMOGLOBIN 13.1 g/dL (12.0-16.0); LYMPHOCYTES % (AUTO) 32.6 %; MEAN CORPUSCULAR HEMOGLOBIN 29.2 pg (27.0-31.0); MEAN CORPUSCULAR HGB CONC 33.4 g/dL (32.0-36.0); MEAN CORPUSCULAR VOLUME 87.3 fL (81.0-99.0); MEAN PLATELET VOLUME 10.1 fL (7.9-10.8); MONOCYTES # (AUTO) 0.5 10^3/uL (0.0-1.0); MONOCYTES % (AUTO) 8.2 %; NEUTROPHILS # (AUTO) 3.5 10^3/uL (1.5-6.6); NEUTROPHILS % (AUTO) 56.1 %; PLT - PLATELET COUNT 277 10^3/uL (130-450); RED BLOOD COUNT 4.49 10^6/uL (4.20-5.40); RED CELL DISTRIBUTION WIDTH 11.8 % (12.0-15.0); WHITE BLOOD COUNT 6.2 x10^3/uL (4.8-10.8)
[2023-08-17 11:42] LABS: ALBUMIN 4.6 g/dL (3.2-5.5); ALBUMIN/GLOBULIN RATIO 1.6 (1.0-2.2); BILIRUBIN,TOTAL 0.4 mg/dL (0.2-1.0); CALCIUM 9.7 mg/dL (8.5-10.3); CREATININE 0.9 mg/dL (0.6-1.3); POTASSIUM 3.8 mmol/L (3.5-4.5); TOTAL PROTEIN 7.5 g/dL (6.4-8.9)
[2023-08-17 11:49] LABS: TROPONIN I HIGH SENSITIVITY 2.3 ng/L (2.3-14.8)
--- NOTE | 2023-08-17 12:02 | XRAY Report ---
PROCEDURE: Chest 1V INDICATIONS: Chest pain TECHNIQUE: One view of the chest was acquired. COMPARISON: None. FINDINGS: Surgical changes and devices: None. Lungs and pleura: No pleural effusions or pneumothorax. Lungs are clear. Mediastinum: Mediastinal contours appear normal. Heart size is normal. Bones and chest wall: No suspicious bony lesions. Overlying soft tissues appear unremarkable. IMPRESSION: No acute cardiopulmonary process. Reviewed by: Anne Ochoa MD on 08/17/2023 12:01 PM [facility] Approved by: Anne Ochoa MD on 08/17/2023 12:01 PM [facility] Station ID: [id number]
[2023-08-17 13:18] VITALS: BP 134/72
[2023-08-17] MEDS: SODIUM CHLORIDE 0.9% 1,000 ML IV ONE (13:47)
--- NOTE | 2023-08-17 14:00 | ED Physician Documentation ---
History of Present Illness - Stated complaint Stated Complaint: HIGH HR/DIZZY - Chief complaint Chief Complaint: Cardiac - Additonal information Additional information: 23-year-old female with POTS presents emergency department today for tach ycardia. Patient says that she is working with a neurologist with her POTS but today started feeling like she was having some chest pain and tachycardia. She is on Cymbalta currently working on weaning off of Cymbalta because she feels like this is what has been exacerbating her POTS lately. She has no shortness of breath she has had no recent travel And is not on any hormone replacements. 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 HEENT: None Psych: Other Musculoskeletal: None Derm: None Other Past Medical History: POTS - Past Surgical History Past Surgical History: No - Present Medications Home Medications: Ambulatory Orders Medication Instructions Recorded Confirmed lamoTRIgine [LaMICtal] 25 mg PO DAILY 03/24/21 06/02/21 lamoTRIgine [LaMICtal] 100 mg PO DAILY 03/24/21 06/02/21 - Allergies Allergies/Adverse Reactions: Allergies Allergy/AdvReac Type Severity Reaction Status Date / Time amoxicillin Allergy Hives Verified 08/17/23 10:59 - Social History Does the pt smoke?: No Smoking Status: Never smoker Does the pt drink ETOH?: No Does the pt have substance abuse?: No - Immunizations Immunizations are current?: Yes - POLST Patient has POLST: No PD ED PE NORMAL - Vitals Vital signs reviewed: Yes - General General: Alert and oriented X 3, No acute distress, Well developed/nourished - HEENT HEENT: Atraumatic - Cardiac Cardiac: No murmur, Other (tachy) - Respiratory Respiratory: No respiratory distress, Clear bilaterally - Extremities Extremities: No deformity, No tenderness to palpate, No edema - Psych Psych: Normal affect, Other (anxious) Results - Vitals Vitals: Vital Signs - 24 hr 08/17/23 08/17/23 10:54 13:11 Temperature 36.7 C Heart Rate 137 H 107 H Respiratory 20 20 Rate Blood Pressure 148/90 H 134/72 H O2 Saturation 100 100 Oxygen O2 Source Room air - EKG (time done) 1100 EKG releavant findings:: EKG personally interpreted by author of this note. Relevant findings are: Rate: Rate (enter#) (108) Rhythm: Sinus tachycardia [place]: Normal Intervals: Normal [place] QRS: Normal Ischemia: Normal ST segments Computer interpretation: Agree with computer - Labs Labs: Laboratory Tests 08/17/23 08/17/23 11:24 11:24 WBC 6.2 RBC 4.49 Hgb 13.1 Hct 39.2 MCV 87.3 MCH 29.2 MCHC 33.4 RDW 11.8 L Plt Count 277 MPV 10.1 Neut # (Auto) 3.5 Lymph # (Auto) 2.0 [place] # (Auto) 0.5 Eos # (Auto) 0.1 Baso # (Auto) 0.1 Absolute Nucleated RBC 0.00 Nucleated RBC % 0.0 Sodium 137 Potassium 3.8 Chloride 106 Carbon Dioxide 25 Anion Gap 6.0 BUN 15 Creatinine 0.9 Estimated GFR (MDRD) 78 L Glucose 106 H Calcium 9.7 Total Bilirubin 0.4 AST 15 ALT 12 Alkaline Phosphatase 67 Troponin I High Sens 2.3 Total Protein 7.5 Albumin 4.6 Globulin 2.9 Albumin/Globulin Ratio 1.6 Lipase 17 - Rads (name of study) Chest x-ray Relevant Findings:: Final report received, EMP independent interpretation of test, Other (No acute cardiopulmonary abnormalities.) PD Medical Decision Making - ED course ED course: 23-year-old female presents emergency department for tachycardia and dizziness. Labs are complete and do not reveal any significant abnormalities, troponin was not elevated, lipase within normal limits no electrolyte abnormalities. ECG shows sinus tachycardia. Patient received 1 L of IV fluids and reported that her dizziness did improve. She has a follow-up appointment with her neurologist on Monday for ongoing evaluation of her POTS. Chest x-ray was also complete no acute cardiopulmonary abnormalities. Heart score is 1 patient is safe for discharge at this time return precautions given Departure - Departure Disposition: Home, Self Care Clinical Impression: POTS (postural orthostatic tachycardia syndrome) Instructions: Tachycardia Comments: Thank you for trusting us with your care. We have given you a liter of IV fluids which seem to have helped somewhat with your dizziness you are experiencing. Follow-up with your neurologist on Monday as scheduled and let him know about your ER visit. Please come back to the emergency department if your dizziness is getting any worse or develop worsening shortness of breath worsening chest pain or any other concerning symptoms. Forms: PCP List Discharge Date/Time: 08/17/23 14:51
== END 2023-08-17 14:51 | disposition home or self-care (01) ==
LOC: ED 10:46
DX: G90.A Postural orthostatic tachycardia syndrome [POTS] (principal); Z79.899 Other long term (current) drug therapy
CPT/HCPCS: 36415; 80053; 83690; 84484; 85025; 93005; 99283; 99284

== ENCOUNTER 2023-11-29 21:26 | Outpatient (CLI) | payer OTHER | END 2023-11-29 21:27 | disposition critical access hospital (66) | LOC: EMS 21:26 | DX: R55 Syncope and collapse (principal); R10.10 Upper abdominal pain, unspecified; R11.0 Nausea; L50.9 Urticaria, unspecified; R07.0 Pain in throat | CPT/HCPCS: A0425; A0429 ==

== ENCOUNTER 2023-11-29 21:53 | Emergency (ER) | payer OTHER ==
--- NOTE | 2023-11-29 22:22 | ED Physician Documentation ---
History of Present Illness - Stated complaint Stated Complaint: SYNCOPAL EPISODE - Chief complaint Chief Complaint: Cardiac - History obtained from History obtained from: Patient - Additonal information Additional information: 23-year-old woman with history of either's [place], POTS, presents after syncopal episode. She has a history of migraines and got an occipital nerve block done on Monday with bupivacaine. She had this done several times before. About 12 hours later she started develop a fever with a Tmax of 101.2 and migratory diffuse rashes mostly on the trunk and neck and sparing the palms and soles. This evening she was in the shower and felt nauseous and then stood up quickly and passed out without injury. No recent travel or antibiotic use. No tick bites. PD PAST MEDICAL HISTORY - Past Medical History Past Medical History: Yes Cardiovascular: Other Respiratory: None Neuro: None Endocrine/Autoimmune: None GI: Crohn's disease [employer]: None : None HEENT: None Psych: Other Musculoskeletal: None Derm: None - Past Surgical History Past Surgical History: No - Present Medications Home Medications: Ambulatory Orders Medication Instructions Recorded Confirmed lamoTRIgine [LaMICtal] 25 mg PO DAILY 03/24/21 06/02/21 lamoTRIgine [LaMICtal] 100 mg PO DAILY 03/24/21 06/02/21 - Allergies Allergies/Adverse Reactions: Allergies Allergy/AdvReac Type Severity Reaction Status Date / Time amoxicillin Allergy Hives Verified 11/29/23 22:00 - Social History Does the pt smoke?: No Smoking Status: Never smoker Does the pt drink ETOH?: No Does the pt have substance abuse?: No - Immunizations Immunizations are current?: Yes - POLST Patient has POLST: No PD ED PE NORMAL - Vitals Vital signs reviewed: Yes (Mild resting tachycardia) - General General: Alert and oriented X 3, No acute distress - HEENT HEENT: PERRL, EOMI, Pharynx benign - Neck Neck: Supple, no meningeal sign, No bony TTP - Cardiac Cardiac: RRR (Mild resting tachycardia), No murmur - Respiratory Respiratory: No respiratory distress, Clear bilaterally - Abdomen Abdomen: Non tender - Derm Derm: Other (She does have a mild nonspecific rash with positive dermatographia that spares palms, soles, mucous membranes.) - Neuro Neuro: Alert and oriented X 3, No motor deficit, No sensory deficit, Normal speech Eye Opening: Spontaneous Motor: Obeys Commands Verbal: Oriented GCS Score: 15 - Psych Psych: Normal mood, Normal affect Results - Vitals Vitals: Vital Signs - 24 hr 11/29/23 11/29/23 11/29/23 21:57 22:01 22:34 Temperature 37.0 C Heart Rate 110 H 97 Heart Rate [ 109 H Sitting] Heart Rate [ 130 H Standing] Heart Rate [ 102 H Supine] Respiratory 16 Rate Blood Pressure 147/87 H Blood Pressure 141/85 H [Sitting] Blood Pressure 139/104 H [Standing] Blood Pressure 124/86 H [Supine] O2 Saturation 100 If not protocol 100 : Oxygen Flow, liters/minute Oxygen O2 Source Room air - EKG (time done) 2220 EKG releavant findings:: EKG personally interpreted by author of this note. Relevant findings are: Rate: Rate (enter#) (88) Rhythm: NSR [place]: Normal Intervals: Normal KS. No: Prolonged KS, Prolonged QT, Wide QRS, RBBB, LBBB QRS: Normal Ischemia: Normal ST segments. No: ST elevation c/w ischemia, ST depression Computer interpretation: Agree with computer - Labs Labs: Laboratory Tests 11/29/23 11/29/23 22:12 22:12 WBC 10.7 RBC 4.36 Hgb 12.9 Hct 37.4 MCV 85.8 MCH 29.6 MCHC 34.5 RDW 11.9 L Plt Count 282 MPV 10.2 Neut # (Auto) 7.3 H Lymph # (Auto) 2.0 [place] # (Auto) 1.0 Eos # (Auto) 0.3 Baso # (Auto) 0.1 Absolute Nucleated RBC 0.00 Nucleated RBC % 0.0 Sodium 138 Potassium 3.6 Chloride 109 Carbon Dioxide 22 Anion Gap 7.0 BUN 8 Creatinine 0.9 Estimated GFR (MDRD) 78 L Glucose 97 Calcium 9.5 Magnesium 1.7 Total Bilirubin 0.7 AST 11 ALT 7 L Alkaline Phosphatase 65 Total Protein 7.3 Albumin 4.6 Globulin 2.7 Albumin/Globulin Ratio 1.7 PD Medical Decision Making - ED course ED course: She is been sick for a couple of days after an occipital nerve block. She has had the bupivacaine many times before. Then she passed out tonight. She has a history of POTS and a fever at home with a migratory rash most consistent with hives. She been taking Benadryl. She appears well. No recent travel for RMSF. No tick bites and it does not look like Lyme anyway. Not meningitic or ill appearing. We did orthostatics and her blood pressure stayed okay but her heart rate went from 102 up to 130 on standing. We will start some IV fluids. Care to Dr. Beverly at 11 PM shift change pending reevaluation after IV fluids and completion of lab work. EKG looks normal. Departure - Departure Clinical Impression: Syncope, Hives Condition: Stable Forms: PCP List
[2023-11-29 22:29] LABS: BASOPHILS # (AUTO) 0.1 10^3/uL (0.0-0.1); BASOPHILS % (AUTO) 0.7 %; EOSINOPHILS # (AUTO) 0.3 10^3/uL (0.0-0.7); EOSINOPHILS % (AUTO) 2.7 %; HCT - HEMATOCRIT 37.4 % (37.0-47.0); HGB - HEMOGLOBIN 12.9 g/dL (12.0-16.0); LYMPHOCYTES % (AUTO) 18.3 %; MEAN CORPUSCULAR HEMOGLOBIN 29.6 pg (27.0-31.0); MEAN CORPUSCULAR HGB CONC 34.5 g/dL (32.0-36.0); MEAN CORPUSCULAR VOLUME 85.8 fL (81.0-99.0); MEAN PLATELET VOLUME 10.2 fL (7.9-10.8); MONOCYTES % (AUTO) 9.4 %; NEUTROPHILS # (AUTO) 7.3 10^3/uL (1.5-6.6); NEUTROPHILS % (AUTO) 68.6 %; PLT - PLATELET COUNT 282 10^3/uL (130-450); RED BLOOD COUNT 4.36 10^6/uL (4.20-5.40); RED CELL DISTRIBUTION WIDTH 11.9 % (12.0-15.0); WHITE BLOOD COUNT 10.7 x10^3/uL (4.8-10.8)
[2023-11-29] MEDS: SODIUM CHLORIDE 0.9% 1,000 ML IV STA (22:31)
[2023-11-29 22:47] LABS: ALBUMIN 4.6 g/dL (3.2-5.5); ALBUMIN/GLOBULIN RATIO 1.7 (1.0-2.2); BILIRUBIN,TOTAL 0.7 mg/dL (0.2-1.0); CALCIUM 9.5 mg/dL (8.5-10.3); CREATININE 0.9 mg/dL (0.6-1.3); MAGNESIUM 1.7 mg/dL (1.7-2.3); POTASSIUM 3.6 mmol/L (3.5-4.5); TOTAL PROTEIN 7.3 g/dL (6.4-8.9)
[2023-11-29 23:23] LABS: BILIRUBIN,URINE NEGATIVE (NEGATIVE); GLUCOSE, URINE (UA) NEGATIVE (NEGATIVE); KETONES,URINE (UA) 15 mg/dL (NEGATIVE); LEUKOCYTE ESTERASE, URINE NEGATIVE (NEGATIVE); NITRITE,URINE NEGATIVE (NEGATIVE); OCCULT BLOOD,URINE NEGATIVE (NEGATIVE); PH,URINE 6.5 PH (5.0-7.5); PROTEIN,URINE NEGATIVE (NEGATIVE); UROBILINOGEN,URINE 0.2 (NORMAL) E.U./dL (NORMAL)
[2023-11-29 23:24] LABS: CLARITY,URINE CLEAR (CLEAR)
[2023-11-29 23:25] LABS: HCG UR QUAL NEGATIVE
[2023-11-29 23:26] LABS: B. PARAPERTUSSIS- RESP PCR PAN NOT DETECTED; B. PERTUSSIS- RESP PCR PANEL NOT DETECTED; C. PNEUMONIAE- RESP PCR PANEL NOT DETECTED; CORONAVIRUS 229E-RESP PCR NOT DETECTED; CORONAVIRUS HKU1-RESP PCR NOT DETECTED; CORONAVIRUS NL63-RESP PCR NOT DETECTED; CORONAVIRUS OC43-RESP PCR NOT DETECTED; HUMAN METAPNEUMOVIRUS NOT DETECTED; INFLUENZA A- RESP PCR PANEL NOT DETECTED; INFLUENZA B - RESP PCR PANEL NOT DETECTED; M. PNEUMONIAE- RESP PCR PANEL NOT DETECTED; PARAINFLUENZA VIRUS 1 NOT DETECTED; PARAINFLUENZA VIRUS 2 NOT DETECTED; PARAINFLUENZA VIRUS 3 NOT DETECTED; PARAINFLUENZA VIRUS 4 NOT DETECTED; RHINOVIRUS/ENTEROVIRUS NOT DETECTED; RSV- RESP PCR PANEL NOT DETECTED; SARS-CoV-2 -RESP PCR PANEL NOT DETECTED
--- NOTE | 2023-11-29 23:50 | ED Physician Documentation ---
ED Addendum - Addendum Addendum: 11/29/23 23:49 Patient endorsed to me by Dr. Guillen pending reevaluation. Lab work looks benign. She is feeling better and her vital signs are normal. Patient requesting to go home and follow-up outpatient with her primary care provider. Return precautions given. Disposition Home Impression 1 syncope 2 rash Condition stable 11/29/23 23:50
[2023-11-30 00:09] VITALS: BP 128/78; O2SAT 99
== END 2023-11-30 | disposition home or self-care (01) ==
LOC: EDUNIT# → ED 21:53
DX: L50.9 Urticaria, unspecified (principal); R55 Syncope and collapse
CPT/HCPCS: 36415; 80053; 81001; 81003; 81025; 83735; 85025; 87086; 87633; 93005; 99283; 99284